=== PATIENT | male | born 1985 | race Caucasian/White ===

== ENCOUNTER 2021-05-15 14:19 | Emergency (ER) | payer OTHER, SELFPAY ==
--- NOTE | ~2021-05-15 | CT_ITS ---
EXAMINATION: CT SOFT TISSUE NECK WITH CONTRAST CLINICAL INFORMATION: Right-sided neck mass. COMPARISON: None available. TECHNIQUE: Multidetector helical imaging was performed in the axial plane following the administration of 60 mL of Omnipaque 350 intravenous contrast. Multiple axial reformats and coronal/sagittal reconstructions were created the technologist workstation for review. This CT examination was performed using dose optimization techniques as appropriate, variously including the following: *Automated exposure control. *Adjustment of mA and/or kV according to patient size (this includes techniques or standardized protocols for targeted exams where dose is matched to indication/reason for exam; i.e. extremities or head). *Use of iterative reconstruction technique. DLP: 1288 mGy-cm FINDINGS: No significant cutaneous thickening or subcutaneous inflammation. No discrete fluid collection within the deep tissues of the neck. The premaxillary, retromaxillary, pterygopalatine fossa, orbital apical, parapharyngeal, and prelaryngeal adipose tissue is maintained. Normal appearance of the parotid, submandibular, and thyroid glands. Scattered subcentimeter lymph nodes bilaterally, none of which are pathologically enlarged or abnormally enhancing. No demonstrated focal lesion or abnormal enhancement within the intrinsic tissues of the tongue or floor of mouth. Normal mucosal contours of the pharynx and larynx without abnormal enhancement. Normal appearance of the hyoid bone, thyroid cartilage, or cartilaginous trachea. The airways remains widely patent. No radiopaque foreign bodies. The atlantooccipital and atlantoaxial articulations remain well aligned. Mild reversal the normal cervical lordosis centered on C3-C4. Otherwise, there is anatomic alignment of the vertebral bodies and posterior elements. No evidence of acute fracture or subluxation of the cervical spine. The vertebral body heights are maintained. The intervertebral disc spaces are maintained. Mild multilevel facet joint arthropathy. No evidence of epidural collection. There is no prevertebral soft tissue swelling. Normal opacification of the cervical arterial and venous structures. The visualized portion of the skull base is without significant abnormalities. Mild mucosal thickening of the paranasal sinuses. Mucous retention cyst within the right maxillary sinus. There is an inverted nonobstructed maxillary incisor. The mastoid air cells and middle ear cavities are clear. CT Upper Chest: The visualized lung apices and upper mediastinum are within normal limits. CT/CT soft tissue neck w con IMPRESSION: No demonstrated focal mass, collection, lymphadenopathy, or abnormal enhancement within the soft tissues of the neck.
--- NOTE | ~2021-05-15 | XR_ITS ---
EXAMINATION: XR CHEST CLINICAL INFORMATION: Chest pain COMPARISON: None TECHNIQUE: Frontal view of the chest was obtained. FINDINGS: The lungs are hypoexpanded but clear of acute process. The heart size and pulmonary vascularity is normal. No gross bony abnormality seen. XR/XR chest 1V IMPRESSION: Hypoexpanded lungs with no acute cardiopulmonary process seen.
[2021-05-15 14:36] VITALS: BP 158/92; PULSE 93; RESP 18; TEMP 37.1; O2SAT 97; BMI 40.6
--- NOTE | 2021-05-15 14:39 | ECG_ITS ---
Test Reason : cp Blood Pressure : / mmHG Vent. Rate : 097 BPM Atrial Rate : 097 BPM P-R Int : 126 ms QRS Dur : 094 ms QT Int : 364 ms P-R-T Axes : 060 074 026 degrees QTc Int : 462 ms Normal sinus rhythm with sinus arrhythmia Normal ECG No previous ECGs available Referred By: Generic ED Physician Electronically Signed By:MARION AMADOR
[2021-05-15 14:52] LABS: Hematocrit 45.4 % (42.0-52.0); Hemoglobin 15.3 g/dl (14.0-18.0); Mean Corpuscular HGB Conc 33.7 g/dl (31.0-36.0); Mean Corpuscular Hemoglobin 28.1 pg (27.0-33.0); Mean Corpuscular Volume 83.5 fL (80.0-98.0); Mean Platelet Volume 11.4 fL (9.4-12.4); Platelet Count 218 X10*3/uL (160-400); Red Blood Count 5.44 X10*6/uL (4.60-5.80); Red Cell Distribution Width 13.2 % (11.0-16.0); White Blood Count 7.8 X10*3/uL (4.8-10.8)
[2021-05-15 15:05] LABS: Anion Gap 14 (12-20); Blood Urea Nitrogen 16 mg/dL (9-16); Calcium 9.2 mg/dL (8.4-10.2); Carbon Dioxide 26 mmol/L (22-29); Chloride 104 mmol/L (96-108); Creatinine Clr Calc Pharmacy 126.9; Estimated Glomerular Filt Rate > 60; Glucose Random 102 mg/dL (60-115); Potassium 4.4 mmol/L (3.3-5.1); Sodium 140 mmol/L (135-145)
[2021-05-15 15:12] LABS: Troponin-I High Sensitivity < 3.5 ng/L (<3.5-35.0)
--- NOTE | 2021-05-15 18:09 | ED_ITS ---
HPI - Chest Pain General Chief Complaint: Chest Pain Stated Complaint: Chest Pain Tingling L Arm Time Seen by Provider: 05/15/21 16:22 Source: patient Mode of arrival: ambulatory Limitations: no limitations History of Present Illness complaint: chest pain Onset (ago): hour(s) (started at 11am) Timing of current episode: now resolved Prior episodes: No Onset: during rest Pain location: substernal Pain radiation: left arm Severity: moderate Quality: heaviness Relieving factors: nothing Exacerbating factors: nothing Context: recent travel (did just fly to [place] recently - 2 weeks ago) Associated symptoms: nausea, diaphoresis, dyspnea and other (sweating) Treatment prior to arrival: aspirin Related Data Home Medications Medication Instructions Recorded Confirmed omeprazole 20 mg capsule,delayed 1 cap PO DAILY 05/15/21 release Allergies Allergy/AdvReac Type Severity Reaction Status Date / Time No Known Allergies Allergy Verified 05/15/21 19:42 Review of Systems Review of Systems: Constitutional : No Weight loss, No Fever, No Chills ENT/Mouth : No sore throat, No Rhinorrhea Eyes: No Eye Pain, No Swelling Cardiovascular : pos Chest Pain, pos SOB, no Dyspnea on Exertion, No Orthopnea, No Edema, No Palpitations Respiratory : No Cough, No Sputum Gastrointestinal : pos Nausea, No Vomiting, No Diarrhea, No abdominal Pain, No Hematochezia, No Melena Genitourinary : No Dysuria, No Urinary Frequency Musculoskeletal : No joint pain, No Myalgias, No Joint Swelling Skin : No Skin Lesions, No rash Neuro : No Weakness, No Numbness, No Dizziness, No Headache Psych : No Anxiety/Panic, No Depression Heme/Lymph: No Bruising, No Lymphadenopathy Endocrine : No Polyuria, No Polydipsia All other systems reviewed and are negative [facility] Past Medical History Medical History GERD (gastroesophageal reflux disease) Social History Social History (Updated 05/15/21 @ 18:31 by Jessica Zabala DO) Patient Tobacco Use Status: Never used Tobacco Substance Use Type: Marijuana Advance Directives: No Advance Directives Information Provided: No Physical Exam Vital Signs: Vital Signs: Last Vital Signs Temp 98.7 F 05/15/21 18:16 Pulse 83 05/15/21 18:16 Resp 20 05/15/21 18:16 BP 139/89 05/15/21 18:16 Pulse Ox 98 05/15/21 18:16 BMI result Body Mass Index 40.6 Appearance: Alert. Oriented X3. No acute distress. Eyes: Pupils equal, round and reactive to light. ENT: Pharynx normal. Neck: right lower neck over R SCM firm area felt does not seem to involve the thyroid not fluctuant no skin changes. CVS: Normal heart rate and rhythm. Pulses normal. Respiratory: No respiratory distress. Breath sounds normal. Abdomen: Soft and non-tender. Skin: Skin warm and dry. Normal skin color. Normal skin turgor. Extremities: No lower extremity edema. No calf ttp Neuro: Oriented X 3. No motor deficit. No sensory deficit. Course Course Course Narrative: ddimer negative CT neck ordered for mass on R side repeat troponin negative doubt ACS at this time CT scan negative MDM - Chest Pain MDM Narrative Medical decision making narrative: 36 yo male no sig PMH here with L sided chest pain that started at work 11am no prior cardiac issues - does have fam hx of grandfather. Patient does not use cocaine. He is under stress at work right now and working a lot. At this time will need EKG, troponin x 2, ddimer given recent travel. Also I can feel an area in his neck R lower side lateral to thyroid but no overlying skin changes will obtain imaging at this time to r/o mass. Lab Data Result diagrams: 05/15/21 14:45 05/15/21 14:45 Labs: Lab Results 05/15/21 05/15/21 05/15/21 Range/Units 14:45 14:45 14:45 WBC 7.8 (4.8-10.8) X10*3/uL RBC 5.44 (4.60-5.80) X10*6/uL Hgb 15.3 (14.0-18.0) g/dl Hct 45.4 (42.0-52.0) % MCV 83.5 (80.0-98.0) fL MCH 28.1 (27.0-33.0) pg MCHC 33.7 (31.0-36.0) g/dl RDW 13.2 (11.0-16.0) % Plt Count 218 (160-400) X10*3/uL MPV 11.4 (9.4-12.4) fL Absolute Nucleated RBC 0.000 (0.0-0.012) X10*3/uL Nucleated RBC % (auto) 0.0 (0.0-0.2) /100WBC D-Dimer High Sensitivty NG/ML Sodium 140 (135-145) mmol/L Potassium 4.4 (3.3-5.1) mmol/L Chloride 104 (96-108) mmol/L Carbon Dioxide 26 (22-29) mmol/L Anion Gap 14 (12-20) BUN 16 (9-16) mg/dL Creatinine 1.16 (0.5-1.4) mg/dL Estim Creat Clear Calc 126.9 Estimated GFR > 60 Random Glucose 102 (60-115) mg/dL Calcium 9.2 (8.4-10.2) mg/dL Troponin I High Sens < 3.5 (<3.5-35.0) ng/L 05/15/21 05/15/21 Range/Units 18:46 18:46 WBC (4.8-10.8) X10*3/uL RBC (4.60-5.80) X10*6/uL Hgb (14.0-18.0) g/dl Hct (42.0-52.0) % MCV (80.0-98.0) fL MCH (27.0-33.0) pg MCHC (31.0-36.0) g/dl RDW (11.0-16.0) % Plt Count (160-400) X10*3/uL MPV (9.4-12.4) fL Absolute Nucleated RBC (0.0-0.012) X10*3/uL Nucleated RBC % (auto) (0.0-0.2) /100WBC D-Dimer High Sensitivty < 150 NG/ML Sodium (135-145) mmol/L Potassium (3.3-5.1) mmol/L Chloride (96-108) mmol/L Carbon Dioxide (22-29) mmol/L Anion Gap (12-20) BUN (9-16) mg/dL Creatinine (0.5-1.4) mg/dL Estim Creat Clear Calc Estimated GFR Random Glucose (60-115) mg/dL Calcium (8.4-10.2) mg/dL Troponin I High Sens < 3.5 (<3.5-35.0) ng/L ECG Data ECG #1: Attestation: I personally reviewed and interpreted this ECG as follows: ECG interpretation date: 05/15/21 ECG interpretation time: 18:14 Interpretation: Rate: 97 Rhythm: NSR [place]: normal Normal P waves. Normal ROSA. Normal QRS complex. ST T wave : no LUPE qTC: normal prior studies: no acute ischemia The study has been interpreted contemporaneously by me. Scores Heart Score History: -1- moderately suspicious ECG: -0- normal Age: -0- < or = 45 Risk factory: -1- 1 or 2 risk factors Troponin: -0- < or = normal limit Score: 2 Risk: 1.7% Discharge Plan Discharge Clinical Impression: Atypical chest pain Patient Disposition: Home, Self-Care Instructions: Chest Pain (ED) Additional Instructions: return to ED for any worsening symptoms or concerns normal EKG, negative heart markers in blood x 2, negative test for blood clots continue your omeprazole follow up with your primary care physician if you still feel this R sided neck mass and it does not resolve in [address] report CT/CT soft tissue neck w con IMPRESSION: No demonstrated focal mass, collection, lymphadenopathy, or abnormal enhancement within the soft tissues of the neck. Prescriptions: No Action omeprazole 20 mg capsule,delayed release(DR/EC) 1 cap PO DAILY 0RF Stand Alone Forms: Work/School Release
[2021-05-15 18:16] VITALS: BP 139/89; PULSE 83; RESP 20; TEMP 37.1; O2SAT 98
[2021-05-15 19:07] LABS: D Dimer High Sensitivity < 150 NG/ML
[2021-05-15 19:10] LABS: Troponin-I High Sensitivity < 3.5 ng/L (<3.5-35.0)
[2021-05-15] MEDS: iohexoL 350 MG/ML 100 ML INFUS..BTL IV (19:32)
[2021-05-15 21:14] VITALS: BP 143/80; PULSE 77; RESP 20; TEMP 36.8; O2SAT 97
== END 2021-05-15 21:42 | disposition home or self-care (01) ==
PROVIDERS: Emergency Provider Emergency Medicine
DX: R07.89 Other chest pain (principal); R22.1 Localized swelling, mass and lump, neck
CPT/HCPCS: 36415; 70491; 71045; 80048; 84484; 85027; 85379; 93005; 99284; Q9967

== ENCOUNTER 2025-02-10 01:51 | Emergency (ER) | payer OTHER, SELFPAY ==
--- OUTSIDE RECORDS SUMMARY | 2024-04-29 09:00 | XMS_ITS ---
Author Organization [facility] Address [address] [place] [address] Care Team Providers Care Real Estate Appraiser Name Role Phone Venancio Cruz Primary Care Provider Salvador Ching [phone] Encounters Encounter Location Date Provider Diagnosis [address] [place] [address] 04/29/2024 Salvador Douglas Plan Of Treatment No Information Progress Notes * Alvin MARQUEZDOB:1985 (40 yo M)Acc No.[id number]:04/29/2024 Progress Notes Patient: Alvin WAGNER Provider: Angelica Douglas D.P.M. :1985 A ge:39 Y S ex:Male Date:04/29/2024 Address: [address], [id number] Pcp:Venancio Cruz Subjective: * Chief Complaints: * * Medical History: Objective: * Vitals: Assessment: Plan: * Treatment: * Images: * The named appointment provid er may or may not be the originator of this progress note, and it is not deemed complete until electronically signed by the appointment provider. Sign off status: Pending * Provider: Angelica Douglas D.P.M. Date: 0 04/29/2024 Generated for Ha atkinson/Nannette/Louie on: 04/12/2024 05:33 AM EST
--- NOTE | ~2025-02-10 | XR_ITS ---
CLINICAL HISTORY: Injury; Tenderness 3 view [id number] toe Comparison: None provided Findings: There is an acute avulsion fracture at the lateral base of the 1st distal phalanx with intra-articular extension. There is no joint dislocation. No acute fractures or dislocations seen elsewhere. No radiopaque foreign body. No significant degenerative change. IMPRESSION: Acute avulsion fracture at the lateral base of the 1st distal phalanx with intra-articular extension but without joint dislocation This document has been electronically signed by: Leopoldo Melton MD on 02/10/2025 05:21:36
[2025-02-10 01:56] VITALS: BP 131/78; PULSE 90; RESP 20; TEMP 36.2; O2SAT 96; BMI 39.3
--- NOTE | 2025-02-10 02:21 | ED_ITS ---
HPI - Skin/Abscess/Foreign Bdy General Chief complaint: Skin/Abscess/Foreign Body Stated complaint: right toe injury Time Seen by Provider: 02/10/25 02:20 Source: patient Mode of arrival: ambulatory Limitations: no limitations History of Present Illness ED Provider: Henirk GARZA HPI narrative: The patient is a 40-year-old male who presents to the Emergency Department after striking the corner of a door with his right 2nd toe. He reports an impact and abrasion to the top of the toe with a concurrent cut/avulsion on the plantar aspect. The patient describes soreness but states he can move the toe without difficulty. He is uncertain if a fracture occurred. The laceration on the underside of the toe bled initially but has since stopped; he attempted to clean it with a washcloth prior to arrival but this resulted in additional bleeding. No other injuries reported. Related Data Home Medications ?Medication ?Instructions ?Recorded ?Confirmed omeprazole 20 mg capsule,delayed 1 cap PO DAILY release Allergies Allergy/AdvReac Type Severity Reaction Status Date / Time No Known Allergies Allergy Verified 02/10/25 01:57 Review of Systems Review of Systems: Yes all other systems are reviewed and are negative PMFSH Past Medical History Medical History GERD (gastroesophageal reflux disease) Social History Social History (Updated 05/15/21 @ 18:31 by Samantha Zabala DO) Patient Tobacco Use Status: Never used Tobacco Substance Use Type: Marijuana Advance Directives: No Advance Directives Information Provided: Yes Physical Exam Vital Signs: Vital Signs: Last Vital Signs Temp 97.1 F 02/10/25 01:56 Pulse 90 02/10/25 01:56 Resp 20 02/10/25 01:56 BP 131/78 02/10/25 01:56 Pulse Ox 96 02/10/25 01:56 O2 Del Method Room Air 02/10/25 01:56 BMI result Body Mass Index 39.3 CONSTITUTIONAL: The patient appears non-toxic, well nourished and in no acute distress. Vital signs as documented. HEAD: Atraumatic, normocephalic. EYES: EOMs grossly intact, pupils equal, conjunctiva clear, no exudate. ENT: Nares patent, no discharge. Airway patent, no audible stridor, visible mucosa is pink and moist without noted lesions. NECK: trachea is midline, no obvious masses or gross abnormalities. CHEST: Symmetric movement, normal appearance. LUNGS: Non-labored work of breathing. CARDIAC: No evidence of hypoperfusion. ABDOMEN: Nondistended, no obvious injury. : Deferred. EXTREMITIES: There are superficial abrasions noted to the dorsal and plantar aspect of the right 2nd toe. Distal CSM intact, cap refill intact. Moves all extremities spontaneously without reported pain. No other obvious injury or deformity noted. NEURO: Alert and oriented x3, CN II-XII appear grossly intact. Cerebellar Functioning grossly intact. Speech clear and appropriate. SKIN: Warm, dry, color appropriate. No rashes or lesions noted. Medications Administered Discontinued Medications Generic Name Dose Route Start Last Admin Trade Name Freq PRN Reason Stop Dose Admin Diphtheria/Tetanus/Acell Pertussis 0.5 ml 02/10/25 03:00 02/10/25 04:01 Diphth,Pertus(Acell),Tet Adult 0.5 Ml Syringe IM 02/10/25 03:01 0.5 ml .ONCE ONE Administration Medical Decision Making Medical Decision Making MDM Narrative: 2:54 AM 02/10/2025 (Angel GARZA): The patient is a 40-year-old male who presents to the Emergency Department after striking the corner of a door with his right 2nd toe. He reports an impact and abrasion to the top of the toe with a concurrent cut/avulsion on the plantar aspect. The patient describes soreness but states he can move the toe without difficulty. He is uncertain if a fracture occurred. The laceration on the underside of the toe bled initially but has since stopped; he attempted to clean it with a washcloth prior to arrival but this resulted in additional bleeding. No other injuries reported. Exam reveals abrasion to the dorsal and plantar surface of the right 2nd toe, mild bony tenderness without crepitus. Distal CSM is intact, full range of motion with good cap refill. The area has a significant amount of dried blood around it, we will obtain x-ray to rule out open fracture, and request RN clean and irrigate the area for repeat evaluation and possible skin adhesive repair. We will update Tdap. Discharge Plan Discharge Clinical Impression: Abrasion of toe of right foot Qualifiers: Encounter type: initial encounter Qualified Code(s): S90.414A - Abrasion, right lesser toe(s), initial encounter Patient Disposition: Home, Self-Care Instructions: Abrasion (ED) Additional Instructions: Thank you for choosing [facility] Emergency Department for your care today. Thankfully your x-ray today show no evidence of acute fracture as interpreted by your ED provider. If the radiologist disagrees with this assessment you will receive a phone call. At this time there is no indication for admission to the hospital or continued ED observation, and it is safe to discharge you home. Your abrasions/skin flaps were cleaned and then treated with skin adhesive. We will be skin adhesive will reduce the risk of recurrent bleeding and then begin to wear off over the next 5-7 days with a regular showering. You should take alternating (staggered) doses of ibuprofen 600mg and Tylenol 1000mg every 4 hours as needed for any additional pain. Please rest the injured area, and apply ice for 20 minutes every hour. Please follow up with your primary care physician for re-evaluation, additional management of your symptoms, and continued preventative care. If you do not have a primary care physician, please call the [facility] at [phone] to establish a new primary care physician. While waiting to establish your new primary care physician, you can call our Walk-in [facility] at [phone] for non-emergency needs. Please return to the emergency department if you develop a severe or sudden change in your symptoms, a fever over 100.4 that does not improve with Tylenol or Ibuprofen, recurrent vomiting, or any other new or worsening symptoms or concerns. Prescriptions: No Action omeprazole 20 mg capsule,delayed release(DR/EC) 1 cap PO DAILY Referrals: Venancio Cruz PA [Primary Care Provider, Internal Medicine] Clinical Impression: Abrasion of toe of right foot Print Language: Telugu
[2025-02-10] MEDS: Diphth,Pertus(ACell),Tet Adult 0.5 ML SYRINGE IM (04:01)
[2025-02-10 05:15] VITALS: BP 120/64; PULSE 84; RESP 16; TEMP 36.2; O2SAT 98
--- OUTSIDE RECORDS SUMMARY | 2025-02-10 05:33 | XMS_ITS ---
Author Name [facility] Organization Unknown Care Team Organization Name Specialty Phone Email Start Date End Da te [facility] 08/30/2022 024
--- OUTSIDE RECORDS SUMMARY | 2025-02-10 05:33 | XMS_ITS | Patient Health Record ---
[facility] Organization [facility] [place] Address [address] [place] [address] Care Team Providers Care Machine Shop Lead Man Name Role Phone Venancio Cruz Primary Care Provider Salvador Ching Unavailable [phone] Reason For Referral No Information Encounters Encounter Location Date [facility] [place] [address] [facility]18[facility]2024 [facility] [address] [place] [address] 04/01/2024 Salvador Douglas Plan Of Treatment No Information Insurance Providers Payer Name Payer Address Payer Phone Subscriber Number Group Number Insured Name Patient Relationship to Insured Coverage Start Date Coverage End Date [facility] [address] [place] [address] [id number] Alvin Marquez Self - patient is the insured
== END 2025-02-10 05:16 | disposition home or self-care (01) ==
PROVIDERS: Emergency Provider Emergency Medicine; PCP Physician Assistant
DX: S90.414A Abrasion, right lesser toe(s), initial encounter (principal); W22.8XXA Striking against or struck by other objects, initial encounter; Y93.9 Activity, unspecified; Y92.9 Unspecified place or not applicable; Y99.9 Unspecified external cause status
CPT/HCPCS: 73660; 90471; 90715; 99284

== ENCOUNTER → 2025-02-10 02:52 | Outpatient (BNV) | payer OTHER, SELFPAY | PROVIDERS: Emergency Provider Emergency Medicine; PCP Physician Assistant; Visit Provider Student in an Organized Health Care Education/Training Program | DX: S92.421A Displaced fracture of distal phalanx of right great toe, initial encounter for closed fracture (principal) | CPT/HCPCS: 73660 ==